=== PATIENT | female | born 1985 | race Caucasian/White ===

== ENCOUNTER → 2016-10-08 | Outpatient (CLI) | payer OTHER ==
[2016-10-08 12:23] LABS: BASO % 0.2 % (0.0-1.0); EOS # 0.1 K/mm3 (0.0-0.50); EOS % 2.5 % (0.0-3.0); LYMPH # 1.8 K/mm3 (1.5-4.5); LYMPH % 29.6 % (24.0-44.0); MEAN CORPUSCULAR HEMOGLOBIN 24.7 pg (27.0-33.0); MEAN CORPUSCULAR HGB CONC 32.3 g/dl (32.0-36.5); MEAN CORPUSCULAR VOLUME 76.2 fl (80.0-96.0); MONO # 0.2 K/mm3 (0.0-0.8); MONO % 3.9 % (0.0-5.0); NEUTROPHILS # 3.5 K/mm3 (1.8-7.7); NEUTROPHILS % 62.4 % (36.0-66.0); RED CELL DISTRIBUTION WIDTH 13.7 % (11.5-14.5); WHITE BLOOD COUNT 5.6 K/mm3 (4.0-10.0)
[2016-10-08 12:38] LABS: ALBUMIN 3.4 GM/DL (3.2-5.2); ALBUMIN/GLOBULIN RATIO 0.92 (1.00-1.93); ALKALINE PHOSPHATASE 85 U/L (45-117); ALT/SGPT 15 U/L (12-78); ANION GAP 7 MEQ/L (8-16); AST/SGOT 10 U/L (15-37); BILIRUBIN,TOTAL 0.2 MG/DL (0.2-1.0); BLOOD UREA NITROGEN 11 MG/DL (7-18); CALCIUM LEVEL 8.9 MG/DL (8.5-10.1); CARBON DIOXIDE LEVEL 28 MEQ/L (21-32); CHLORIDE LEVEL 105 MEQ/L (98-107); CHOLESTEROL LEVEL 214 MG/DL (<200); CREATININE FOR GFR 0.68 MG/DL (0.55-1.02); FREE T4 0.98 NG/DL (0.76-1.46); GLOMERULAR FILTRATION RATE > 60.0 (>60); GLUCOSE, FASTING 98 MG/DL (70-105); POTASSIUM SERUM 3.9 MEQ/L (3.5-5.1); SODIUM LEVEL 140 MEQ/L (136-145); TOTAL PROTEIN 7.1 GM/DL (6.4-8.2); TRIGLYCERIDES LEVEL 131 MG/DL (<150)
== END ==
LOC: M LAB 11:00
PROVIDERS: ATTEND Nurse Practitioner Adult Health
DX: Z79.899 Other long term (current) drug therapy (principal); E55.9 Vitamin D deficiency, unspecified; E11.9 Type 2 diabetes mellitus without complications

== ENCOUNTER → 2017-02-10 | Outpatient (CLI) | payer OTHER ==
[~2017-02-10] MED LIST: ACAR50TA2; ALBU17IN; AUGM875T28 PO; BACL10TA2; CIPRODEX AD; FLUO40CA; FLUT1SPR2; HYDR-3713 PO; METF500T4; MONT10TA2; VITA1CAP40
[2017-02-10 11:20] LABS: BASO % 0.3 % (0.0-1.0); EOS # 0.1 K/mm3 (0.0-0.50); EOS % 1.5 % (0.0-3.0); LYMPH % 25.9 % (24.0-44.0); MEAN CORPUSCULAR HGB CONC 32.9 g/dl (32.0-36.5); MEAN CORPUSCULAR VOLUME 75.9 fl (80.0-96.0); MONO # 0.3 K/mm3 (0.0-0.8); MONO % 3.3 % (0.0-5.0); NEUTROPHILS # 5.2 K/mm3 (1.8-7.7); NEUTROPHILS % 67.7 % (36.0-66.0); RED CELL DISTRIBUTION WIDTH 13.4 % (11.5-14.5); WHITE BLOOD COUNT 7.7 K/mm3 (4.0-10.0)
[2017-02-10 13:02] LABS: ALBUMIN 3.4 GM/DL (3.2-5.2); ALBUMIN/GLOBULIN RATIO 0.87 (1.00-1.93); ALKALINE PHOSPHATASE 103 U/L (45-117); ALT/SGPT 16 U/L (12-78); ANION GAP 9 MEQ/L (8-16); AST/SGOT 4 U/L (15-37); BILIRUBIN,TOTAL 0.2 MG/DL (0.2-1.0); BLOOD UREA NITROGEN 11 MG/DL (7-18); CALCIUM LEVEL 9.1 MG/DL (8.5-10.1); CARBON DIOXIDE LEVEL 27 MEQ/L (21-32); CHLORIDE LEVEL 104 MEQ/L (98-107); CHOLESTEROL LEVEL 211 MG/DL (<200); CREATININE FOR GFR 0.73 MG/DL (0.55-1.02); FREE T4 0.98 NG/DL (0.76-1.46); GLOMERULAR FILTRATION RATE > 60.0 (>60); GLUCOSE, FASTING 85 MG/DL (70-105); POTASSIUM SERUM 3.8 MEQ/L (3.5-5.1); SODIUM LEVEL 140 MEQ/L (136-145); TOTAL PROTEIN 7.3 GM/DL (6.4-8.2); TRIGLYCERIDES LEVEL 219 MG/DL (<150)
== END ==
LOC: M LAB 10:41
PROVIDERS: ATTEND Nurse Practitioner Adult Health
DX: D64.9 Anemia, unspecified (principal); E78.00 Pure hypercholesterolemia, unspecified; E55.9 Vitamin D deficiency, unspecified; E28.2 Polycystic ovarian syndrome; Z79.899 Other long term (current) drug therapy

== ENCOUNTER 2017-03-10 13:54 | Emergency (ER) | payer OTHER ==
[~2017-03-10] VITALS: Ht 157.5 cm; Wt 93.1 kg
[2017-03-10] MEDS ORDERED: ALBU17IN (14:05)
[2017-03-10] MEDS ORDERED: ACAR50TA2 (14:05)
[2017-03-10] MEDS ORDERED: FLUT1SPR2 (14:05)
[2017-03-10] MEDS ORDERED: METF500T4 (14:05)
[2017-03-10] MEDS ORDERED: FLUO40CA (14:05)
[2017-03-10] MEDS ORDERED: MONT10TA2 (14:05)
[2017-03-10] MEDS ORDERED: VITA1CAP40 (14:05)
[2017-03-10] MEDS ORDERED: BACL10TA2 (14:05)
[2017-03-10] MEDS ORDERED: CIPRODEX AD (15:52)
[2017-03-10] MEDS ORDERED: AUGM875T28 PO (15:52)
[2017-03-10] MEDS ORDERED: HYDR-3713 PO (15:52)
[2017-03-10 16:01] VITALS: BP 123/74
== END 2017-03-10 16:03 | disposition home or self-care (01) ==
LOC: M ED 13:54
DX: H60.311 Diffuse otitis externa, right ear (principal)

== ENCOUNTER → 2017-06-02 | Outpatient (CLI) | payer OTHER ==
[2017-06-02 11:39] LABS: BASO % 0.3 % (0.0-1.0); EOS # 0.1 10^3/uL (0.0-0.50); EOS % 1.6 % (0.0-3.0); IMMATURE GRANULOCYTE % 0.1 % (0-0); LYMPH # 1.7 10^3/uL (1.5-4.5); LYMPH % 23.8 % (24.0-44.0); MEAN CORPUSCULAR HEMOGLOBIN 24.3 pg (27.0-33.0); MEAN CORPUSCULAR HGB CONC 31.5 g/dl (32.0-36.5); MEAN CORPUSCULAR VOLUME 77.2 fl (80.0-96.0); MONO # 0.4 10^3/uL (0.0-0.8); MONO % 5.9 % (0.0-5.0); NEUTROPHILS # 4.8 10^3/uL (1.8-7.7); NEUTROPHILS % 68.3 % (36.0-66.0); PLATELET COUNT, AUTOMATED 306 10^3/uL (150-450); WHITE BLOOD COUNT 7.1 10^3/uL (4.0-10.0)
[2017-06-02 12:23] LABS: ALBUMIN 3.4 GM/DL (3.2-5.2); ALBUMIN/GLOBULIN RATIO 0.87 (1.00-1.93); ALKALINE PHOSPHATASE 102 U/L (45-117); ALT/SGPT 20 U/L (12-78); ANION GAP 8 MEQ/L (8-16); AST/SGOT 9 U/L (7-37); BILIRUBIN,TOTAL 0.2 MG/DL (0.2-1.0); BLOOD UREA NITROGEN 12 MG/DL (7-18); CALCIUM LEVEL 9.4 MG/DL (8.5-10.1); CARBON DIOXIDE LEVEL 27 MEQ/L (21-32); CHLORIDE LEVEL 105 MEQ/L (98-107); CHOLESTEROL LEVEL 212 MG/DL (<200); CREATININE FOR GFR 0.68 MG/DL (0.55-1.02); FREE T4 0.89 NG/DL (0.76-1.46); GLOMERULAR FILTRATION RATE > 60.0 (>60); GLUCOSE, FASTING 88 MG/DL (70-105); POTASSIUM SERUM 4.1 MEQ/L (3.5-5.1); SODIUM LEVEL 140 MEQ/L (136-145); TOTAL PROTEIN 7.3 GM/DL (6.4-8.2); TRIGLYCERIDES LEVEL 208 MG/DL (<150)
== END ==
LOC: M LRY 09:23
PROVIDERS: ATTEND Nurse Practitioner Adult Health
DX: E55.9 Vitamin D deficiency, unspecified (principal); E11.9 Type 2 diabetes mellitus without complications; E78.00 Pure hypercholesterolemia, unspecified; Z79.899 Other long term (current) drug therapy; D64.9 Anemia, unspecified

== ENCOUNTER → 2017-07-29 | Outpatient (REF) | payer OTHER | LOC: M SFHCLERA 19:27 | DX: J02.9 Acute pharyngitis, unspecified (principal) ==

== ENCOUNTER → 2018-01-14 | Outpatient (CLI) | payer OTHER ==
[2018-01-14 12:45] LABS: BASO % 0.5 % (0.0-1.0); EOS # 0.1 10^3/uL (0.0-0.50); EOS % 1.6 % (0.0-3.0); HEMATOCRIT 37.8 % (36.0-47.0); HEMOGLOBIN 12.1 g/dl (12.0-15.5); IMMATURE GRANULOCYTE % 0.2 % (0-3.0); LYMPH # 1.7 10^3/uL (1.5-4.5); LYMPH % 27.2 % (24.0-44.0); MEAN CORPUSCULAR HEMOGLOBIN 24.2 pg (27.0-33.0); MEAN CORPUSCULAR VOLUME 75.8 fl (80.0-96.0); MONO # 0.3 10^3/uL (0.0-0.8); MONO % 4.8 % (0.0-5.0); NEUTROPHILS # 4.1 10^3/uL (1.8-7.7); NEUTROPHILS % 65.7 % (36.0-66.0); PLATELET COUNT, AUTOMATED 314 10^3/uL (150-450); RED BLOOD COUNT 4.99 10^6/uL (4.00-5.40); WHITE BLOOD COUNT 6.2 10^3/uL (4.0-10.0)
[2018-01-14 12:57] LABS: TOTAL 25(OH) VITAMIN D 18.6 NG/ML (30.0-100.0)
[2018-01-14 13:03] LABS: ALBUMIN 3.5 GM/DL (3.2-5.2); ALBUMIN/GLOBULIN RATIO 0.95 (1.00-1.93); ALKALINE PHOSPHATASE 102 U/L (45-117); ALT/SGPT 25 U/L (12-78); ANION GAP 8 MEQ/L (8-16); AST/SGOT 10 U/L (7-37); BILIRUBIN,TOTAL 0.3 MG/DL (0.2-1.0); BLOOD UREA NITROGEN 11 MG/DL (7-18); CALCIUM LEVEL 9.3 MG/DL (8.5-10.1); CARBON DIOXIDE LEVEL 28 MEQ/L (21-32); CHLORIDE LEVEL 104 MEQ/L (98-107); CHOLESTEROL LEVEL 212 MG/DL (<200); CHOLESTEROL RISK RATIO 4.818 (<5); CREATININE FOR GFR 0.71 MG/DL (0.55-1.30); FREE T4 0.96 NG/DL (0.76-1.46); GLOMERULAR FILTRATION RATE > 60.0 (>60); GLUCOSE, FASTING 82 MG/DL (70-100); HDL CHOLESTEROL 44 MG/DL (>40); LDL CHOLESTEROL 131.4 MG/DL (<100); NON-HDL-C 168 MG/DL; POTASSIUM SERUM 3.9 MEQ/L (3.5-5.1); SODIUM LEVEL 140 MEQ/L (136-145); TOTAL PROTEIN 7.2 GM/DL (6.4-8.2); TRIGLYCERIDES LEVEL 183 MG/DL (<150)
[2018-01-14 13:09] LABS: ESTIMATED AVERAGE GLUCOSE 123 MG/DL (60-110); HEMOGLOBIN A1c 5.9 %
== END ==
LOC: M LRY 08:47
DX: E11.9 Type 2 diabetes mellitus without complications (principal); E55.9 Vitamin D deficiency, unspecified; E78.00 Pure hypercholesterolemia, unspecified; D64.9 Anemia, unspecified; Z79.899 Other long term (current) drug therapy
CPT/HCPCS: 84443

== ENCOUNTER 2018-12-27 14:31 | Emergency (ER) | payer OTHER ==
[~2018-12-27] VITALS: Ht 157.5 cm; Wt 90.5 kg
[~2018-12-27 14:31] MED LIST changes: -VITA1CAP40; +VITA50005
[2018-12-27] MEDS ORDERED: TRI-TAB PO (14:48)
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
[2018-12-27] MEDS ORDERED: CYCL10TA PO (16:22)
[2018-12-27 17:03] VITALS: BP 116/69
--- NOTE | 2019-01-03 14:40 | ED PDOC ---
Post-Departure Follow-Up ladonna gardner faxed formal report of ct c spine for fu Bella Ayoub MD Jan 03, 2019 14:40
== END 2018-12-27 17:21 | disposition home or self-care (01) ==
LOC: EDSEX 14:31 → M ED 14:31 → EDBD 14:31 → M ED 17:21
DX: S13.4XXA Sprain of ligaments of cervical spine, initial encounter (principal); M50.222 Other cervical disc displacement at C5-C6 level; M46.02 Spinal enthesopathy, cervical region; V43.52XA Car driver injured in collision with other type car in traffic accident, initial encounter; Y92.410 Unspecified street and highway as the place of occurrence of the external cause; E11.9 Type 2 diabetes mellitus without complications; Z88.8 Allergy status to other drugs, medicaments and biological substances; Z88.6 Allergy status to analgesic agent; Z91.048 Other nonmedicinal substance allergy status; Z79.899 Other long term (current) drug therapy; Z79.84 Long term (current) use of oral hypoglycemic drugs; Z79.3 Long term (current) use of hormonal contraceptives

== ENCOUNTER → 2019-08-20 | Outpatient (REF) | payer OTHER ==
[~2019-08-20] MED LIST changes: -ACAR50TA2; +ACAR50TA3; +CYCL10TA PO; +METF-791; -METF500T4; -MONT10TA2; +MONT10TA4; +TRI-TAB PO
== END ==
LOC: M SFHCLERA 14:35
PROVIDERS: ATTEND Physician Assistant
DX: R50.9 Fever, unspecified (principal); R51 Headache

== ENCOUNTER → 2020-02-21 | Emergency (ER) | payer OTHER ==
[~2020-02-21] MED LIST changes: +ACETAMINOPHEN 325 MG TAB As Ordered ONE; +CYCL-707 PO; -CYCL10TA PO; -METF-791; +METF-838
[2020-02-25 18:49] LABS: ACETAMINOPHEN LEVEL < 2.0 UG/ML (10.0-30.0); ALBUMIN 3.8 GM/DL (3.2-5.2); ALT/SGPT 30 U/L (12-78); AMPHETAMINES LEVEL URINE NEGATIVE (NEGATIVE); BARBITURATES URINE NEGATIVE (NEGATIVE); BENZODIAZEPINES URINE NEGATIVE (NEGATIVE); BILIRUBIN,DIRECT 0.1 MG/DL (0.0-0.2); BILIRUBIN,TOTAL 0.4 MG/DL (0.2-1.0); BLOOD UREA NITROGEN 9 MG/DL (7-18); CALCIUM LEVEL 9.4 MG/DL (8.5-10.1); CANNABINOIDS URINE NEGATIVE (NEGATIVE); CARBON DIOXIDE LEVEL 28 MEQ/L (21-32); CHLORIDE LEVEL 105 MEQ/L (98-107); COCAINE METABOLITE URINE NEGATIVE (NEGATIVE); CREATININE FOR GFR 0.78 MG/DL (0.55-1.30); ETHYL ALCOHOL (ETHANOL) < 0.003 % (0.000-0.010); GLOMERULAR FILTRATION RATE > 60.0 (>60); GLUCOSE, FASTING 93 MG/DL (70-100); METHADONE URINE NEGATIVE (NEGATIVE); OPIATES URINE NEGATIVE (NEGATIVE); PHENCYCLIDINE URINE NEGATIVE (NEGATIVE); POTASSIUM SERUM 3.4 MEQ/L (3.5-5.1); SALICYLATE LEVEL < 1.7 MG/DL (5.0-30.0); SODIUM LEVEL 140 MEQ/L (136-145); TOTAL PROTEIN 7.3 GM/DL (6.4-8.2)
[2020-02-25 19:00] LABS: HCG, SERUM QUALITATIVE NEGATIVE (NEGATIVE)
[2020-04-02 08:34] LABS: HEMATOCRIT 41.3 % (36.0-47.0); HEMOGLOBIN 12.9 g/dl (12.0-15.5); MEAN CORPUSCULAR HEMOGLOBIN 24.4 pg (27.0-33.0); MEAN CORPUSCULAR HGB CONC 31.2 g/dl (32.0-36.5); MEAN CORPUSCULAR VOLUME 78.1 fl (80.0-96.0); PLATELET COUNT, AUTOMATED 338 10^3/uL (150-450); RED BLOOD COUNT 5.29 10^6/uL (4.00-5.40)
== END | disposition home or self-care (01) ==
LOC: M ED 15:00
DX: F32.9 Major depressive disorder, single episode, unspecified (principal); R73.03 Prediabetes; E66.01 Morbid (severe) obesity due to excess calories; G47.33 Obstructive sleep apnea (adult) (pediatric); K44.9 Diaphragmatic hernia without obstruction or gangrene; K29.70 Gastritis, unspecified, without bleeding; Z79.84 Long term (current) use of oral hypoglycemic drugs; Z79.899 Other long term (current) drug therapy; Z88.6 Allergy status to analgesic agent; Z88.8 Allergy status to other drugs, medicaments and biological substances
CPT/HCPCS: 80048; 80076; 80307; 84443; 84703; 85027; 99285; G0480

== ENCOUNTER → 2023-11-16 | Outpatient (CLI) | payer OTHER ==
[~2023-11-16] MED LIST changes: -ACETAMINOPHEN 325 MG TAB As Ordered ONE; +CIPR7.5D5 AD; -CIPRODEX AD; -MONT10TA4; +MONT10TA97
[2023-11-16 08:59] LABS: HEMATOCRIT 43.4 % (36.0-47.0); HEMOGLOBIN 13.7 g/dl (12.0-15.5); MEAN CORPUSCULAR HEMOGLOBIN 24.7 pg (27.0-33.0); MEAN CORPUSCULAR HGB CONC 31.6 g/dl (32.0-36.5); MEAN CORPUSCULAR VOLUME 78.3 fl (80.0-96.0); PLATELET COUNT, AUTOMATED 284 10^3/uL (150-450); RED BLOOD COUNT 5.54 10^6/uL (4.00-5.40); WHITE BLOOD COUNT 6.8 10^3/uL (4.0-10.0)
[2023-11-16 09:18] LABS: HEMOGLOBIN A1c 5.7 % (4.0-6.0)
== END ==
LOC: M LAB 07:54
PROVIDERS: ATTEND Registered Nurse
DX: E11.65 Type 2 diabetes mellitus with hyperglycemia (principal); Z79.899 Other long term (current) drug therapy

== ENCOUNTER → 2024-09-07 | Outpatient (REF) | payer OTHER ==
[2024-09-07 21:33] LABS: APPEARANCE, URINE CLOUDY (CLEAR); BACTERIA, URINE AUTO NEGATIVE (NEGATIVE); BILIRUBIN, URINE AUTO NEGATIVE (NEGATIVE); BLOOD, URINE BLOOD NEGATIVE (NEGATIVE); COLOR, URINE YELLOW (YELLOW); GLUCOSE, URINE (UA) AUTO NEGATIVE (NEGATIVE); KETONE, URINE AUTO NEGATIVE (NEGATIVE); LEUKOCYTE ESTERASE, URINE AUTO 3+ (NEGATIVE); MUCUS, URINE SMALL (NEGATIVE); NITRITE, URINE AUTO NEGATIVE (NEGATIVE); PROTEIN, URINE AUTO 1+ mg/dL (NEGATIVE); RBC, URINE AUTO 4 /HPF (0-3); SPECIFIC GRAVITY URINE AUTO 1.032 (1.002-1.035); SQUAMOUS EPITHELIAL CELL UR AU 12 /HPF (0-6); WBC, URINE AUTO 87 /HPF (0-3)
[2024-09-07 23:00] LABS: Trichomonas vaginalis (AMP) POSITIVE (NEGATIVE)
[2024-09-07 23:33] LABS: GC DNA AMPLIFICATION NEGATIVE (NEGATIVE)
== END ==
LOC: M LAB REF 21:10
PROVIDERS: ATTEND Physician Assistant
DX: N39.0 Urinary tract infection, site not specified (principal); Z20.2 Contact with and (suspected) exposure to infections with a predominantly sexual mode of transmission

== ENCOUNTER → 2025-04-13 | Outpatient (CLI) | payer OTHER ==
[2025-04-13 17:41] LABS: PLATELET COUNT, AUTOMATED 316 10^3/uL (150-450)
[2025-04-13 18:08] LABS: ALT/SGPT 22 U/L (7.0-40); AST/SGOT 15 U/L (<34); CALCIUM LEVEL 9.9 MG/DL (8.5-10.1); CARBON DIOXIDE LEVEL 32 MMOL/L (20-31); CHLORIDE LEVEL 103 MMOL/L (98-107); CHOLESTEROL LEVEL 138 MG/DL (<200); CHOLESTEROL RISK RATIO 2.42 (<5); CREATININE FOR GFR 0.73 MG/DL (0.55-1.30); GLOMERULAR FILTRATION RATE > 90.0 (>58); IRON (FE) 36 UG/DL (50-170); LDL CHOLESTEROL 62.6 MG/DL (<100); NON-HDL-C 81.2 MG/DL; PERCENT SATURATION 10.7 % (13.2-45.0); POTASSIUM SERUM 4.0 MMOL/L (3.5-5.1); SODIUM LEVEL 142 MMOL/L (136-145); TRIGLYCERIDES LEVEL 93 MG/DL (<150)
[2025-04-13 18:10] LABS: TOTAL 25(OH) VITAMIN D 28.7 NG/ML (20.0-100.0)
[2025-04-13 18:33] LABS: ESTIMATED AVERAGE GLUCOSE 114.0 MG/DL (60-110)
== END ==
LOC: M LAB 16:49
PROVIDERS: ATTEND Internal Medicine Cardiovascular Disease
DX: E11.65 Type 2 diabetes mellitus with hyperglycemia (principal)